=== PATIENT | female | born 2000 | race Caucasian/White ===

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

== ENCOUNTER 2023-05-18 16:35 | Emergency (ER) | payer OTHER, SELFPAY ==
--- NOTE | ~2023-05-18 | XR_ITS ---
EXAMINATION: XR CHEST CLINICAL INFORMATION: Cough, shortness of breath COMPARISON: Chest radiograph 09/19/2015. TECHNIQUE: 2 views of the chest were obtained. FINDINGS: Clear lungs. No pleural effusion or pneumothorax. Cardiomediastinal silhouette is unchanged. XR/XR chest 2V IMPRESSION: No acute cardiopulmonary abnormality.
--- NOTE | 2023-05-18 16:37 | ECG_ITS ---
Test Reason : CHEST PAIN Blood Pressure : / mmHG Vent. Rate : 086 BPM Atrial Rate : 086 BPM P-R Int : 146 ms QRS Dur : 080 ms QT Int : 358 ms P-R-T Axes : 069 062 050 degrees QTc Int : 428 ms Normal sinus rhythm with sinus arrhythmia Normal ECG No previous ECGs available Referred By: Freida Lee Electronically Signed By:JADYN LANDA MD
[2023-05-18 16:53] VITALS: BP 130/83; PULSE 93; RESP 18; TEMP 37.4; O2SAT 98; BMI 27.0
--- NOTE | 2023-05-18 16:54 | ED_ITS ---
HPI - General Adult General Chief complaint: Upper Respiratory Symptoms Stated complaint: Chest pain, congestion, vomiting Time Seen by Provider: 05/18/23 17:57 Source: patient and RN notes reviewed Mode of arrival: ambulatory Limitations: no limitations History of Present Illness HPI narrative: This is a 84-ek[age]-female presenting to the emergency department with complaints of nasal congestion and productive cough x 2 weeks. She states that initially her symptoms started off with a sore throat. She states that over the course of this past week she has had increased cough, shortness of breath, and chest pain which occurs with coughing. She also reports that she has been nauseous and vomited yesterday. She states that she has been using her albuterol inhaler and updraft which has provided her with some relief. She called her primary care physician was unable to see your until July. No sick contacts. No sore throat, ear pain, abdominal pain, dysuria, hematuria, urinary symptoms, diarrhea or constipation. No other complaints or concerns at this time. MD complaint: Cough Onset (ago): day(s) Radiation: non-radiation Quality: aching Pain Consistency: constant Relieving factors: none Exacerbating factors: none Associated symptoms: denies other symptoms Treatments prior to arrival: none Related Data Home Medications Medication Instructions Recorded Confirmed albuterol sulfate 90 mcg/actuation 2 puff inhalation Q4H PRN wheezing 05/11/20 aerosol inhaler clotrimazole 1 % topical cream applic topical 05/11/20 metronidazole 500 mg tablet 500 mg PO BID 05/11/20 nitrofurantoin 1 cap PO BID 05/11/20 monohydrate/macrocrystals 100 mg capsule norgestimate 0.25 mg-ethinyl 1 tab PO DAILY 05/11/20 estradiol 35 mcg tablet ondansetron 4 mg disintegrating 4 mg PO Q8H PRN nausea/vomiting 05/11/20 tablet tamsulosin 0.4 mg capsule 0.4 mg PO DAILY 05/11/20 Previous Rx's Medication Instructions Recorded tamsulosin 0.4 mg capsule 0.4 mg PO BEDTIME #30 caps 05/11/20 albuterol sulfate 2.5 mg/3 mL 2.5 mg (3 mL) inhalation QID PRN 05/18/23 (0.083 %) solution for nebulization shortness of breath or wheezing #90 mL azithromycin 250 mg tablet See Rx Instructions PO .COMPLEX #6 05/18/23 tabs benzonatate 100 mg capsule 100 mg PO TID PRN cough #20 caps 05/18/23 prednisone 20 mg tablet 20 mg PO DAILY 5 days #5 tabs 05/18/23 sodium chloride 0.65 % nasal spray 2 spray intranasal QID PRN nasal 05/18/23 aerosol (Saline Nose) congestion #45 mL Allergies Allergy/AdvReac Type Severity Reaction Status Date / Time No Known Allergies Allergy Verified 05/18/23 16:53 [No Known Allergies*] Review of Systems Review of Systems: Yes all other systems are reviewed and are negative Constitutional: Constitutional: Reports as per [facility] Past Medical History Attestation statement: The following information was validated with the patient. Social History Social History Advance Directives: No Advance Directives Information Provided: No Physical Exam ED Vital Signs: Vital Signs - 24 hr 05/18/23 16:53 Temperature 99.3 F Pulse Rate 93 Respiratory Rate 18 Blood Pressure 130/83 Pulse Oximetry 98 Oxygen Delivery Method Room Air BMI result Body Mass Index 27.0 Const General: cooperative, comfortable and no acute distress Orientation/consciousness: patient oriented x3 Limitations: no limitations HENMT Head: Yes normal to inspection, Yes normocephalic and Yes atraumatic Ears: hearing grossly normal bilaterally and TM's normal bilaterally General nose exam: Normal external nose present Face and sinus: Yes normal facial exam Mouth: Normal oral and palatal mucosa present, oropharynx normal and moist mucous membranes Throat: Yes posterior oropharynx normal Eyes General: appearance normal, both eyes and all related structures Eyelids: Yes eyelids normal Conjunctivae: conjunctivae normal Sclerae: sclerae normal Pupils: Equal, round and reactive pupils present EOM: EOMs intact bilaterally Neck Neck: Yes normal visual inspection, Yes full ROM and Yes no lymphadenopathy Lymphatic: no lymphadenopathy noted Chest Chest palpation & inspection: normal inspection of the chest Resp Effort & Inspection: normal respiratory effort and able to speak in complete sentences Auscultation: clear to auscultation bilaterally, no crackles, no rales, no rhonchi and no wheezes Cardio Rate: regular rate Rhythm: regular rhythm Heart sounds: S1 normal heart sound present and S2 normal heart sound present GI Inspection: Yes normal to inspection Skin General skin exam: no rashes or lesions noted Trauma: no lacerations or abrasions Wounds: no wounds Neuro General: patient oriented x3 and moves all extremities Cranial nerves: Yes Equal, round and reactive pupils present Extrem General: Yes normal to inspection Right upper extremity: normal to inspection Left upper extremity: normal to inspection Right lower extremity: normal to inspection Left lower extremity: normal to inspection Course Course Course Narrative: This is an RME: Additional HPI, ROS, PE not included below will be deferred to primary provider. This is a 29-sxyf-qxo-female presenting to the emergency department with complaints of chest pain, shortness of breath, cough. She states that initially her symptoms started off with a sore throat. She states that over the course of this past week she has had increased cough, shortness of breath, and chest pain which occurs with coughing. She also reports that she has been nauseous and vomited yesterday. No abdominal pain. Lungs are clear to auscultation bilaterally, oropharynx non erythematous. Plan: Viral swabs, chest x-ray further ER evaluation needed Medical Decision Making Medical Decision Making [facility] Narrative: This is a 23-year-old female, with a history of asthma, presenting to the emergency department for evaluation of productive cough, congestion x2 weeks. Patient states that yesterday she was feeling nauseous and vomited. She states decreased p.o. intake due to nausea today. She adamantly denies chance of . Viral swabs were collected, negative for flu, COVID, RSV. Chest x- ray was obtained and was unremarkable. EKG normal sinus rhythm with sinus arrhythmia. Patient reporting no chest pain during examination. No shortness of breath. Lungs are clear to auscultation bilaterally. Abdomen is soft nontender. Vital signs are stable, afebrile, oxygen saturation 98% on RA. Given patient's symptoms have been ongoing for the last 2 weeks, will treat with azithromycin and prednisone. Will also prescribed nasal saline spray for nasal congestion. Advised to return with any new or worsening symptoms. Patient understands and agrees with plan. Stable for discharge. Differential Diagnosis Differential Diagnoses: The differential diagnosis associated with the presentation includes URI, bronchitis, pneumonia, COVID Lab Data [facility] Lab Attestation statement: I reviewed the patient's lab results. Negative Labs: Lab Results 05/18/23 Range/Units 17:10 Influenza Type A (PCR) NEGATIVE (Negative) Influenza Type B (PCR) NEGATIVE (Negative) RSV RNA Qual (PCR) NEGATIVE (Negative) SARS-CoV-2 RNA (RT-PCR) NEGATIVE (Negative) Radiology Impression Discussion of test interpretation with radiology: I have reviewed the radiologist's reading. Radiologist Impression: EXAMINATION: XR CHEST CLINICAL INFORMATION: Cough, shortness of breath COMPARISON: Chest radiograph 09/19/2015. TECHNIQUE: 2 views of the chest were obtained. FINDINGS: Clear lungs. No pleural effusion or pneumothorax. Cardiomediastinal silhouette is unchanged. XR/XR chest 2V IMPRESSION: No acute cardiopulmonary abnormality. Dictated By: Ishaan Lord MD Discharge Plan Discharge Clinical Impression: Upper respiratory infection Patient Disposition: Home, Self-Care Instructions: Upper Respiratory Infection (ED) Additional Instructions: You presented to the emergency department today for a cough. You tested negative for flu, RSV, and COVID. Her chest x-ray did not show pneumonia. Given her symptoms have been ongoing for the last 2 weeks, I am prescribing you an antibiotic. Please take entire course even if your feeling better. I am also giving you medication called prednisone, this will help inflammation. Also giving him medication to help with the cough, his Tessalon. You can take this as needed. Please take nasal spray as needed for nasal congestion. Continue using albuterol inhaler and duo nebulizer as needed. Please follow-up with your primary care physician, call on Saturday to make an appointment. If any new or worsening symptoms occur, please return for re-evaluation. Prescriptions: New azithromycin 250 mg tablet See Rx Instructions .ROUTE .COMPLEX Qty: 6 0RF Rx Instructions: For 250 mg dose pack: take 500 mg today (day 1), then 250 mg for 4 days (days 2-5) prednisone 20 mg tablet 20 mg PO DAILY 5 Days Qty: 5 0RF Saline Nose 0.65 % aerosol,spray 2 spray intranasal QID PRN (Reason: nasal congestion) Qty: 45 0RF benzonatate 100 mg capsule 100 mg PO TID PRN (Reason: cough) Qty: 20 0RF albuterol sulfate 2.5 mg /3 mL (0.083 %) solution for nebulization 2.5 mg inhalation QID PRN (Reason: shortness of breath or wheezing) Qty: 90 0RF No Action norgestimate-ethinyl estradiol 0.25-35 mg-mcg tablet 1 tab PO DAILY nitrofurantoin monohyd/m-cryst 100 mg capsule 1 cap PO BID clotrimazole 1 % cream topical metronidazole 500 mg tablet 500 mg PO BID tamsulosin 0.4 mg capsule 0.4 mg PO DAILY albuterol sulfate 90 mcg/actuation HFA aerosol inhaler 2 puff inhalation Q4H PRN (Reason: wheezing) ondansetron 4 mg tablet,disintegrating 4 mg PO Q8H PRN (Reason: nausea/vomiting) tamsulosin 0.4 mg capsule 0.4 mg PO BEDTIME Qty: 30 0RF
[2023-05-18 17:56] LABS: Influenza A PCR NEGATIVE (Negative); Influenza B PCR NEGATIVE (Negative); Resp Syncy Virus RNA Qual PCR NEGATIVE (Negative); SARS COV2 PCR INHOUSE NEGATIVE (Negative)
== END 2023-05-18 18:51 | disposition home or self-care (01) ==
PROVIDERS: Physician Assistant Medical; Emergency Provider Student in an Organized Health Care Education/Training Program
DX: J06.9 Acute upper respiratory infection, unspecified (principal); R05.9 Cough, unspecified; Z20.822 Contact with and (suspected) exposure to COVID-19; Z20.828 Contact with and (suspected) exposure to other viral communicable diseases; R06.02 Shortness of breath
CPT/HCPCS: 0241U; 71046; 93005; 99283

== ENCOUNTER 2023-10-15 08:41 | Outpatient (AMB) | payer OTHER, SELFPAY ==
[2023-10-15 08:40] VITALS: BP 118/60; PULSE 107; TEMP 36.8; O2SAT 98; BMI 26.1
--- NOTE | 2023-10-15 08:40 | MHC.OFFWIV ---
Intake Vital Signs 10/15/23 08:40 Height 5 ft 1 in Weight 138 lb BMI 26.1 BP 118/60 Blood Pressure Location Lt brachial Position Sitting Pulse 107 H Pulse Source Pulse Oximeter Temp 98.2 F Temp Source Temporal Artery Scan Pulse Oximetry (%) 98 Oxygen Delivery Method Room Air Intake Visit Reasons: [employer] Sore throat, headache Intake Note: pt is here today for sore throat headache started 2 weeks ago Patient Tobacco Use Status: Never used Tobacco Allergies No Known Allergies [No Known Allergies*] Allergy (Verified 10/15/23 08:55) Medication List - Last Reconciled 10/15/23 by FREDRICK Jasso albuterol sulfate 2.5 mg (3 mL) inhalation QID PRN albuterol sulfate 90 mcg/actuation 2 puffs inhalation Q4H PRN Do you need a note to return to daycare/school/sports/work: Yes HPI HPI Comments History of Present Illness Details Patient is a 23-year-old female in today for a sick visit. Patient states that for the past 2 days she has developed symptoms of headache, sore throat, cough. Patient has used nvax-pzf-kznqbuo medicine like NyQuil with mild effect. Has no significant past medical history. Patient denies shortness of breath, chest pain, vomiting, dizziness, numbness. In office strep is negative. Also obtain upper respiratory swab. [facility] Social History Patient Tobacco Use Status: Never used Tobacco Review of Systems Const All systems reviewed & are unremarkable except as noted in HPI and below Reports headache(s) ENT Denies otalgia, Reports headache(s), Denies nasal congestion, Denies neck pain, Denies post nasal drip and Reports sore throat Card Denies chest pain and Denies dyspnea Resp Denies dyspnea Musc Denies neck pain Neuro Reports headache(s) Physical Exam Vital Signs: Last Vital Signs Temp 98.2 F 10/15/23 08:40 Pulse 107 H 10/15/23 08:40 BP 118/60 10/15/23 08:40 Pulse Ox 98 10/15/23 08:40 Oxygen Delivery Method Room Air 10/15/23 08:40 BMI result Body Mass Index 26.1 Const Other: Appearance: Alert.? Oriented X3.? No acute distress.? Head: Normocephalic, atraumatic, Eyes: Pupils equal, round and reactive to light.? ENT: Pharynx erythme. Tonsils +2. No tonsillar exudate. Neck: Normal inspection.? Neck supple.? CVS: Normal heart rate and rhythm.? Pulses normal.? Respiratory: No respiratory distress.? Breath sounds normal.? Neuro: Oriented X 3.? No motor deficit.? No sensory deficit. CN 2-12 intact Results AMB Rapid Strep AMB Rapid Strep Negative Last Edit by Gail Dickerson MA on 10/15/23 08:55 Results Reviewed Results Reviewed: Strep test negative Assessment & Plan Assessment & Plan (1) Upper respiratory infection: Comment: Patient likely has upper respiratory infection. Will give prednisone and cepacol throat drops. Patient has also been instructed to stay hydrated, can continue to use wwtk-vxc-snsmacm medicine. Code(s): J06.9 - Acute upper respiratory infection, unspecified Qualifiers: URI type: unspecified URI Qualified Code(s): J06.9 - Acute upper respiratory infection, unspecified Plan: Take your medications as prescribed. If you were prescribed antibiotics today, it is important that you take your medication to their entirety, do not skip any doses, do not finish them early. Follow-up with your primary care provider this week. Return to the emergency department with new or worsening symptoms. Such as fevers, chills, chest pain, shortness of breath, nausea, vomiting, dizziness, headache, vision changes, lethargy In case of emergency call 911 Plan Follow-up with PCP. Orders: Orders SARS-CoV2/FLU/RSV Today J06.9 - Acute upper respiratory infection, unspecified Medications: New benzocaine-menthol 15-3.6 mg (Cepacol Sore Throat (benzocaine-menthol)) 1 peggy mucous membrane Q2-4H PRN 16 ea 0RF sore throat benzonatate 100 mg PO BID PRN 30 caps 0RF cough Coding Level of Care Code Est Pt Level 3 (46100) Diagnoses Upper respiratory tract infection, unspecified type J06.9 URI type: unspecified URI Time Spent (min) 23
== END 2023-10-15 09:32 | disposition home or self-care (01) ==
PROVIDERS: Visit Provider Nurse Practitioner Primary Care
DX: J06.9 Acute upper respiratory infection, unspecified (principal)
CPT/HCPCS: 99213

== ENCOUNTER 2023-10-15 10:16 | Outpatient (REF) | payer OTHER, SELFPAY ==
[2023-10-15 11:18] LABS: Influenza A PCR NEGATIVE (Negative); Influenza B PCR NEGATIVE (Negative); Resp Syncy Virus RNA Qual PCR NEGATIVE (Negative); SARS COV2 PCR INHOUSE NEGATIVE (Negative)
== END 2023-10-15 10:17 | disposition home or self-care (01) ==
LOC: HO.HMGCLNP 10:16
PROVIDERS: Visit Provider Nurse Practitioner Primary Care
DX: Z11.52 Encounter for screening for COVID-19 (principal); J06.9 Acute upper respiratory infection, unspecified
CPT/HCPCS: 0241U

== ENCOUNTER 2024-07-16 01:22 | Emergency (ER) | payer SELFPAY ==
--- NOTE | 2024-07-16 | ECG_ITS ---
Test Reason : cp Blood Pressure : */* mmHG Vent. Rate : 93 BPM Atrial Rate : 93 BPM P-R Int : 142 ms QRS Dur : 72 ms QT Int : 362 ms P-R-T Axes : 72 63 36 degrees QTcB Int : 450 ms Normal sinus rhythm Normal ECG When compared with ECG of 18-May-2023 16:42, No significant change was found Referred By: Generic ED Physician Electronically Signed By: Silvino Wright
--- NOTE | 2024-07-16 01:30 | MHC.EDTECH ---
Patient brought into triage area,EKG taken per order,signed by provider
[2024-07-16 01:32] VITALS: BP 123/64; PULSE 106; RESP 18; TEMP 36.8; O2SAT 97; BMI 24.2
--- NOTE | 2024-07-16 01:50 | MHC.EDTECH ---
Patient brought into triage area,labs,sars/flu/rsv,and urine obtained and sent to lab.
[2024-07-16 01:57] LABS: Hemoglobin 15.4 g/dl (12.0-16.0); Mean Corpuscular HGB Conc 36.7 g/dl (31.0-35.0); Mean Corpuscular Hemoglobin 33.1 pg (27.0-33.0); Mean Corpuscular Volume 90.3 fL (80.0-98.0); Mean Platelet Volume 9.5 fL (9.4-12.3); Platelet Count 262 X10*3/uL (160-400); Red Blood Count 4.65 X10*6/uL (4.20-5.50); Red Cell Distribution Width 12.5 % (11.0-16.0); White Blood Count 18.6 X10*3/uL (4.8-10.8)
[2024-07-16 01:59] LABS: Appearance Urine Clear; Color Urine Yellow; Glucose Urine UA Negative (Negative); Leukocyte Esterase Urine Trace (Negative); Nitrite Urine Negative (Negative); PH 5.5 (5.0-9.0); Specific Gravity - Urine >= 1.030 (1.005-1.025); UMIC TRIGGER UA YES; Urine Blood Large (3+) (Negative); Urine Ketones Trace mg/dL (Negative); Urine Protein Trace mg/dL (Neg-Trace)
[2024-07-16 02:00] LABS: Urine Pregnancy NEGATIVE (NEGATIVE)
[2024-07-16 02:01] LABS: UPreg QC Valid YES
[2024-07-16 02:04] LABS: Bacteria Urine Trace (None Seen); Hyaline Casts Urine 0-2 /LPF (0-2); RBC Urine >20 /HPF (0-2); Squamous Epithelial Cell Urine 0-2 /HPF (0-2)
[2024-07-16 02:21] LABS: Troponin-I High Sensitivity < 2.7 ng/L (<3.5-17.0)
[2024-07-16 02:24] LABS: Alanine Aminotransferase 21 U/L (0-31); Albumin Level 4.5 g/dL (3.5-5.0); Alkaline Phosphatase 64 U/L (39-117); Anion Gap 13 (12-20); Aspartate Amino Transferase 22 U/L (5-31); Bilirubin Total 0.6 mg/dL (0.0-1.0); Blood Urea Nitrogen 11 mg/dL (9-16); Calcium 9.2 mg/dL (8.4-10.2); Carbon Dioxide 20 mmol/L (22-29); Chloride 114 mmol/L (96-108); Creatinine Clr Calc Pharmacy 108.8; Estimated Glomerular Filt Rate > 60; Glucose Random 113 mg/dL (60-115); Potassium 3.8 mmol/L (3.3-5.1); Sodium 143 mmol/L (135-145); Total Protein 7.6 g/dL (6.5-8.0)
[2024-07-16 02:34] LABS: Influenza A PCR NEGATIVE (Negative); Influenza B PCR NEGATIVE (Negative); Resp Syncy Virus RNA Qual PCR NEGATIVE (Negative); SARS COV2 PCR INHOUSE NEGATIVE (Negative)
[2024-07-16 05:18] VITALS: BP 108/56; PULSE 85; RESP 16; TEMP 36.9; O2SAT 99
--- NOTE | 2024-07-16 06:46 | PC.NURSE ---
Pt given gingerale and crackers. Pt reports keeping them down. Pt reports ABD pain.
--- NOTE | 2024-07-16 07:00 | ED_ITS ---
HPI - Nausea/Vomiting/Diarrhea General Chief complaint: Nausea/Vomiting/Diarrhea Stated complaint: v/d chest pain Time Seen by Provider: 07/16/24 06:31 Source: patient Mode of arrival: ambulatory Limitations: no limitations History of Present Illness ED Provider: Hanane Vigil PA-C HPI Narrative: 24 yo female presents to the ER for evaluation of nausea, vomiting, diarrhea since last evening around 05:00 o'clock. She reports taking Zofran at home with no relief. She reports multiple episodes of vomiting and nonbloody diarrhea along with generalized abdominal discomfort. Most of the discomfort is in her upper abdomen. She denies anyone at home with similar symptoms. No fever or chills. No urinary symptoms. No back pain. Patient was also reporting pain in her right chest when she vomits. No pain at rest. No shortness a breath. MD elicited complaint: nausea, vomiting, diarrhea and abdominal pain Onset (ago): hour(s) Description of vomiting: food contents Description of diarrhea: loose Associated nausea: Yes Associated abdominal pain: Yes Location of pain: diffuse Pain consistency: intermittent Severity: moderate Quality: aching Exacerbating factors: eating Relieving factors: none Associated symptoms: chest pain, headaches, loss of appetite, malaise, nausea/vomiting and weakness Related Data Home Medications ?Medication ?Instructions ?Recorded ?Confirmed albuterol sulfate 90 mcg/actuation 2 puff inhalation Q4H PRN wheezing 05/11/20 10/15/23 aerosol inhaler Previous Rx's ?Medication ?Instructions ?Recorded albuterol sulfate 2.5 mg/3 mL 2.5 mg (3 mL) inhalation QID PRN 05/18/23 (0.083 %) solution for nebulization shortness of breath or wheezing #90 mL benzocaine 15 mg-menthol 3.6 mg 1 peggy mucous membrane Q2-4H PRN 10/15/23 lozenges (Cepacol Sore Throat sore throat #16 ea (benzocaine-menthol)) benzonatate 100 mg capsule 100 mg PO BID PRN cough #30 caps 10/15/23 ondansetron 4 mg disintegrating 4 mg PO Q8H PRN nausea and 07/16/24 tablet vomiting #5 tabs Allergies Allergy/AdvReac Type Severity Reaction Status Date / Time No Known Allergies Allergy Verified 07/16/24 01:36 [No Known Allergies*] Review of Systems 2 Review of Systems: Yes all other systems are reviewed and are negative Gastrointestinal: Gastrointestinal: Reports nausea PMFSH Social History Social History Alcohol intake: never Patient Tobacco Use Status: Never used Tobacco Smoked in Last 30 Days: No Use of substances other than those prescribed or required for medical reasons: No Advance Directives: No Advance Directives Information Provided: Yes Patient : No Physical Exam 2 Vital Signs: Vital Signs: Last Vital Signs Temp 98.4 F 07/16/24 05:18 Pulse 85 07/16/24 05:18 Resp 16 07/16/24 05:18 BP 108/56 L 07/16/24 05:18 Pulse Ox 99 07/16/24 05:18 O2 Del Method Room Air 07/16/24 05:18 BMI result Body Mass Index 24.2 Appearance: Alert. Oriented X3. appears uncomfortable Head: normocephalic, atraumatic. Eyes: Pupils equal, round and reactive to light. ENT: Pharynx normal. No tonsillar swelling or exudate. Neck: Normal inspection. Neck supple. CVS: Normal heart rate and rhythm. Pulses normal. Respiratory: No respiratory distress. Breath sounds normal. Abdomen: Soft with mild epigastric tenderness, no rebound or guarding. normal +BS x4 Skin: Skin warm and dry. Normal skin color. Normal skin turgor. No rashes. Extremities: No lower extremity edema. No joint swelling. Neuro/psych: Oriented X 3. No motor deficit. No sensory deficit. CN II-XII intact. Normal speech and cognition. Medications Administered Discontinued Medications Generic Name Dose Route Start Last Admin Trade Name Freq PRN Reason Stop Dose Admin Sodium Chloride 1,000 mls @ 999 mls/hr 07/16/24 07:00 07/16/24 07:03 Ns IV 07/16/24 08:00 999 mls/hr .Q1H1M JAKOB Administration Ondansetron HCl 4 mg 07/16/24 06:51 07/16/24 07:03 Ondansetron Hcl 4 Mg/2 Ml Vial IVPUSH 07/16/24 06:52 4 mg ONCE ONE Administration Medical Decision Making Medical Decision Making MDM Narrative: 24 yo female presenting for evaluation of N/V/D, abdominal pain and intermittent right sided chest pain since last night. On arrival to the ER patient was mildly tachycardic with heart rate in the low 100s. Other vital signs are stable. Lab workup today is showing leukocytosis of 18,000. She had is also hyperchloremic with a mildly low bicarb, likely due to GI losses. She has normal renal function, normal LFTs. Troponin is negative and EKGs unremarkable. Low suspicion for cardiac etiology of her chest pain. Most likely musculoskeletal. She has clear lung sounds, low suspicion for pneumothorax. No palpable crepitus on exam. Patient tested negative for COVID, flu, RSV. Her signs and symptoms are most likely due to a viral gastroenteritis. She continues to complain of nausea, has not vomited in a few hours. IV was established she was given IV fluids and Zofran. Patient improved after meds and fluids. Tolerating PO. No vomiting. Abd discomfort improved. Most likely viral gastroenteritis. discussed dx and tx as well as return precautions. stable for d/c home Differential Diagnosis Differential Diagnoses: The differential diagnosis associated with the presentation includes viral gastroenteritis, gastritis, bacterial gastroenteritis, low clinical suspicion for appendicitis, cholecystitis Admission/Observation Consideration of admission/observation: Escalation of care including admission/observation considered Lab Data MDM Lab Attestation statement: I reviewed the patient's lab results. Leukocytosis, mild hyperchloremia with low bicarb, no anion gap, normal renal function, normal LFTs 07/16/24 01:50 07/16/24 01:50 Labs: Lab Results 07/16/24 Range/Units 01:50 WBC 18.6 H (4.8-10.8) X10*3/uL RBC 4.65 (4.20-5.50) X10*6/uL Hgb 15.4 (12.0-16.0) g/dl Hct 42.0 (37.0-47.0) % MCV 90.3 (80.0-98.0) fL MCH 33.1 H (27.0-33.0) pg MCHC 36.7 H (31.0-35.0) g/dl RDW 12.5 (11.0-16.0) % Plt Count 262 (160-400) X10*3/uL MPV 9.5 (9.4-12.3) fL Absolute Nucleated RBC 0.000 (0.0-0.012) X10*3/uL Nucleated RBC % (auto) 0.0 (0.0-0.2) /100WBC Sodium 143 (135-145) mmol/L Potassium 3.8 (3.3-5.1) mmol/L Chloride 114 H (96-108) mmol/L Carbon Dioxide 20 L (22-29) mmol/L Anion Gap 13 (12-20) BUN 11 (9-16) mg/dL Creatinine 0.70 (0.5-1.4) mg/dL Estim Creat Clear Calc 108.8 Estimated GFR > 60 Random Glucose 113 (60-115) mg/dL Calcium 9.2 (8.4-10.2) mg/dL Total Bilirubin 0.6 (0.0-1.0) mg/dL AST 22 (5-31) U/L ALT 21 (0-31) U/L Alkaline Phosphatase 64 (39-117) U/L Troponin I High Sens < 2.7 (<3.5-17.0) ng/L Total Protein 7.6 (6.5-8.0) g/dL Albumin 4.5 (3.5-5.0) g/dL Urine Color Yellow Urine Appearance Clear Urine pH 5.5 (5.0-9.0) Ur Specific [place] >= 1.030 H (1.005-1.025) Urine Protein Trace (Neg-Trace) mg/dL Urine Glucose (UA) Negative (Negative) mg/dL Urine Ketones Trace (Negative) mg/dL Urine Blood Large (3+) H (Negative) Urine Nitrite Negative (Negative) Ur Leukocyte Esterase Trace H (Negative) Urine RBC >20 H (0-2) /HPF Urine WBC 11-20 H (0-5) /HPF Ur Squamous Epith Cells 0-2 (0-2) /HPF Urine Bacteria Trace (None Seen) Hyaline Casts 0-2 (0-2) /LPF Urine Test NEGATIVE (NEGATIVE) Influenza Type A (PCR) NEGATIVE (Negative) Influenza Type B (PCR) NEGATIVE (Negative) RSV RNA Qual (PCR) NEGATIVE (Negative) SARS-CoV-2 RNA (RT-PCR) NEGATIVE (Negative) External Record Review External record reviewed: Outpatient record, Prior outpatient labs and Prior outpatient radiology Tests considered The following testing was considered but not selected: Considered CT scan of her abdomen Prescription Management I considered prescription management with: Pain Medication and Other (Antiemetic) Critical Care Time Critical Care Time Critical Care Time: No Discharge Plan Discharge Clinical Impression: Gastroenteritis Patient Disposition: Home, Self-Care Instructions: Gastroenteritis (DC) Additional Instructions: You lab workup today was unremarkable, aside from elevated white blood cell count which can be seen with infections as well as vomiting. Your urine test was negative for infection and . You most likely have a viral GI bug also known as gastroenteritis. Treatment is supportive care, symptoms usually resolve on their own in 48-72 hours. Recommend rest and plenty of oral hydration. Stick to a bland diet like soup and toast while you are not feeling well. Take the prescribed medication as needed for nausea. Recommend over the counter Pepto Bismol or Imodium for upset stomach and diarrhea. Follow up with your doctor as needed. If you develop new or worsening symptoms call 911 or come back to the ER for further evaluation. Prescriptions: New ondansetron 4 mg tablet,disintegrating 4 mg PO Q8H PRN (Reason: nausea and vomiting) Qty: 5 0RF No Action albuterol sulfate 2.5 mg /3 mL (0.083 %) solution for nebulization 2.5 mg inhalation QID PRN (Reason: shortness of breath or wheezing) Qty: 90 0RF Cepacol Sore Throat (dave-men) 15-3.6 mg lozenge 1 peggy mucous membrane Q2-4H PRN (Reason: sore throat) Qty: 16 0RF benzonatate 100 mg capsule 100 mg PO BID PRN (Reason: cough) Qty: 30 0RF albuterol sulfate 90 mcg/actuation HFA aerosol inhaler 2 puff inhalation Q4H PRN (Reason: wheezing) Stand Alone Forms: Work/School Release Print Language: Jordanian
[2024-07-16] MEDS: ondansetron HCL 4 MG/2 ML VIAL IVPUSH (07:03)
[2024-07-16] MEDS: 0.9 % Sodium Chloride 1,000 ML 999 ML IV (07:03)
[2024-07-16 09:09] VITALS: BP 101/56; PULSE 95; RESP 20; TEMP 37; O2SAT 100
== END 2024-07-16 09:10 | disposition home or self-care (01) ==
PROVIDERS: Emergency Provider Student in an Organized Health Care Education/Training Program
DX: K52.9 Noninfective gastroenteritis and colitis, unspecified (principal); R11.2 Nausea with vomiting, unspecified; R10.2 Pelvic and perineal pain; R07.89 Other chest pain; Z03.818 Encounter for observation for suspected exposure to other biological agents ruled out; Z79.899 Other long term (current) drug therapy
CPT/HCPCS: 0241U; 80053; 81001; 81025; 84484; 85027; 93005; 96361; 96374; 99284; 99285; J2405

== ENCOUNTER → 2024-07-16 01:28 | Outpatient (BNV) | payer SELFPAY | PROVIDERS: Emergency Provider Student in an Organized Health Care Education/Training Program; Visit Provider Internal Medicine Cardiovascular Disease | DX: R07.9 Chest pain, unspecified (principal) | CPT/HCPCS: 93010 ==

== ENCOUNTER 2024-08-04 08:33 | Emergency (ER) | payer OTHER, SELFPAY ==
--- NOTE | 2024-08-04 | ECG_ITS ---
Test Reason : CP Blood Pressure : */* mmHG Vent. Rate : 125 BPM Atrial Rate : 125 BPM P-R Int : 150 ms QRS Dur : 76 ms QT Int : 298 ms P-R-T Axes : 76 56 13 degrees QTcB Int : 430 ms Sinus tachycardia Nonspecific T wave abnormality Abnormal ECG When compared with ECG of 16-Jul-2024 01:28, Nonspecific T wave abnormality, worse in Inferior leads Nonspecific T wave abnormality now evident in Anterolateral leads Referred By: Generic ED Physician Electronically Signed By: Silvino Wright
--- NOTE | ~2024-08-04 | XR_ITS ---
EXAMINATION: XR CHEST 1 VIEW HISTORY: cough COMPARISON: Comparison is made with the prior examination dated 05/18/2023. FINDINGS: A single AP view of the chest is submitted. The lungs are expanded and clear. There is no pleural effusion, pneumothorax, or pulmonary vascular congestion. The heart is normal in size. The bones are intact. XR/XR chest 1V IMPRESSION: No acute cardiopulmonary abnormality. Electronically signed by: Joe Correia MD 08/04/2024 09:41 AM [facility] [place]
[2024-08-04 08:38] VITALS: BP 123/72; PULSE 117; RESP 20; TEMP 37.1; O2SAT 97; BMI 27.6
--- OUTSIDE RECORDS SUMMARY | 2024-08-04 09:11 | XMS_ITS | Clinical Summary ---
Author Organization [employer] Address [address] [place] [address] [address] [place] [address] Care Team Providers Care Powerbuilder Name Role Phone Unavailable Primary Care Provider Unavailabl e Allergies Active Allergy Reactions Criticality Noted Date Comments Dog Epithelium 04/05/2014 Dust Mite Extract 04/05/2014 2014 Tree Extract 04/05/2014 Medications EPINEPHrine (Epipen) 0.3 MG/0.3ML injection syringe INJECT 0.3 MG INTO THE MUSCLE NEEDED FOR ANAPHYLAXIS AND CALL 911 3 Active Active Problems No known active problems Social History Tobacco Use Types Packs/Day Years Used Date Smoking Tobacco: Never Smokeless Tobacco: Never Tobacco Cessation:Counseling Given: Not Answered Comments Unknown Sex and Gender Information Value Date Recorded Sex Assigned at Female 04/30/2022 10:34 AM EDT Legal Sex Female 10:34 AM EDT Gender Identity Female 08/15/2022 11:38 AM EST Sexual Orientation Choose not to disclose 2022 2:08 PM EST Plan of Treatment Health Maintenance Due Date Last Done Comments Chlamydia and Gonorrhea Screening 2002 Depression Screening 2002 HIV Screening 2002 SDOH Screening 2002 Pneumococcal Vaccine: Pediatrics (0 to 5 Years) and At-Risk Patients (6 to 49) Years) (1 of 1 - PPSV23) 02/25/2008 04/08/2003, 2002, 2002, Additional history exists Hepatitis A Vaccines (2 of 2 - 2-dose series) 01/25/2014 07/28/2013 Alcohol/Substance Use Screening 2014 Family Planning (PISQ) 2017 Hepatitis C Screening 02/25/2020 Pap Smear 2023 DTaP/Tdap/Td Vaccines (7 - Td or Tdap) 02/25/2023 02/25/2013, 02/28/2006, 07/29/2003, Additional history exists Tobacco Screening 08/21/2023 08/21/2022 COVID-19 Vaccine ( - season) 2024 08/18/2021, 11/18/2020, 10/27/2020 Influenza Vaccine (#1) 2024 , 04/25/2020, 04/08/2019, Additional history exists Zoster Vaccines (1 of 2) 02/25/2052 RSV Patients and Patients Aged 60 years or older (1 - 1-dose 75+ series) 2077 Hepatitis B Vaccines Completed 2002, 2002, 2002 HIB Vaccines Completed 07/29/2003, 07/02, 2002, Additional history exists IPV Vaccines Completed 02/28/2006, 07/02, 2002, Additional history exists HPV Vaccines Completed 08/26/2014, 07/02, 02/25/2013 Meningococcal Vaccine Completed 11/04/2018, 013 RSV under 20 months Aged Out No longe r eligible based on patient's age to complete this topic Rotavirus Vaccines Aged Out No longer eligible based on patient's age to complete this topic Insurance [employer] PARTIAL
--- OUTSIDE RECORDS SUMMARY | 2024-08-04 09:11 | XMS_ITS | Clinical Summary ---
Author Organization [facility] Address [address] [place] [address] Care Team Providers Care Process Safety Engineer Name Role Phone Denice Francis MD Primary Care [facility] ider Allergies Active Allergy Reactions Criticality Noted Date Comments Dog Dander 04/05/2014 House Dust Mite 04/05/20142013 Other 04/05/2014 Tree Extract Medications Medication Sig Dispensed Refills Start Date End Date Status albuterol HFA (PROAIR HFA ; PROVENTIL HFA ; VENTOLIN HFA) 90 mcg/actuation inhaler Inhale 2 Puffs into the lungs every 4 hours as needed for Cough, Wheezing or Shortness of Breath. 05/15/2023 Active loratadine (CLARITIN) 10 mg tablet Take 1 tablet (10 mg total) by mouth 1 (one) time each day. 05/15/2023 Active EPINEPHrine (EpiPen 2-Star) 0.3 mg/0.3 mL injection Inject 0.3 mg into the muscle as needed for Other (anaphylactic reaction). 2-pack. Fill with whichever brand is covered by insurance. 07/12/2022 Active Active Problems Problem Noted Date Diagnosed Date PCOS (polycystic ovarian syndrome) 06/18/2017 Overview (06/11/2024): Menarche 15, OCP tried for one month 03/17 dysmenorrhea, 04/28/18 CBC, DHEA, FSH, LH wnl, thus androgenic state less likely to be coming from other reasons 17 hydroxy pending, but I have low suspicion Now her total testosterone is elevated at 66, HOWEVER her free testosterone is normal, which is a more sensitive test for detection of hyperandrogenic state. Referral to Adolescent market maker placed. 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 Goode 08/14 Skin test + mite, cat, dog, tree, continue flonase , consider immunotherapy Asthma management per Dr. Quinn electric operator (hx of 3 hospitalizations in [place] ages 12 m 6-7-8 yr old per mom) Given QVAR in [place] not in [place] per mom 04/29/14 not better ref to pulm Allergic rhinoconjunctivitis 12/20/2013 Overview (06/11/2024): Dr. Goode 08/14 Skin test + mite, cat, dog, tree, continue flonase , consider immunotherapy, Asthma management per Dr. Quinn Immunizations Name Administration Dates Next Due DTaP (Infanrix) 6wks to less than 7yo ,07/29/2003,2002,07/15,2002 [id number] (Pentacel) 2mo to less than 5yo 07/29/2003,2002,2002,04/27 HPV, Quadrivalent 08/26/2014,07/28/2013,02/26/20 13 Hepatitis A Pediatric (Havri x; Vaqta) 12mo to less than 19yo 07/28/2013 Hepatitis B Pediatric (Enger ix B; Recombivax HB) to less than 20 yo 2002,2002,2002 IPV Inactivated polio (Ipol) 6wks and older 02/28/2006,2002,2002,04/27 Influenza trivalent, 0.5mL, preservative free (Fluarix; FluLaval; Fluzone) ages 6mo and older (Afluria) 3 years and older 04/08/2019,03/31/2018,06/03/2017,07/10 Influenza trivalent, with pr eservative (Fluzone; Afluria) 6mo and older 03/25/2022,04/25/2020,07/15/2013,04/08,2002 MMR, measles mumps and rubel la Live (Priorix; M-M-R II) 12mo and older 02/28/2006,04/08/2003 MMRV, measles mumps rubella and varicella live (Proquad) 4yo to less than 7yo 02/28/2006,04/08/2003 Meningococcal MCV4P 11/04/2018,02/25/2013 PPD Test 04/08/2019,03/10/2018,06/03/2017 Pneumococcal conjugate 13 va lent (Prevnar 13, PCV13) 2mo and older 04/08/2003,2002,2002,04/27 Pneumococcal conjugate 20 va lent (Prevnar 20, PCV 20) 2mo and older 07/12/2022 Tdap Tetanus diptheria acell ular pertussis (Boostrix; Adacel) 7yo and older 02/25/2013 Varicella live (Varivax) 12m o and older 02/25/2013,04/08/2003 Surgical History Surgery Date Site/Laterality Comments OTHER SURGICAL HISTORY PROCEDURE: DENIES PREVIOUS SURGERY Medical History Medical History Date Comments Asthma hosp age 9y/o ICU DX:Asthma; COM MENT: from infancy Seasonal allergies DX:Seasonal a llergies; COMMENT: allergic to everything Dental caries extractions 24m/o DX:Dental harsha es Milk allergy infancy DX:Milk allergy; COMMENT: nutramagen Vision decreased age 12y glasses DX:Vision decre ased Sinusitis in [place] DX:Sinusitis Constipation DX:Constipation Headache DX:Headache Developmental delay DX:Developme ntal delay; COMMENT: learning problem Dyslexia IEP DX:Dyslexia Dysgraphia DX:Dysgraphia Pancreatitis 2006 DX:Pancreatitis Strep pharyngitis 2013 DX:Strep phary ngitis Allergic rhinitis 08/2013 DX:Allergic rh initis; COMMENT: atarax/flonase/considering immunotherapy Allergic conjunctivitis DX:Aller gic conjunctivitis Anxiety DX:Anxiety Trevor-Schlatter's disease o f right knee 2-14xray unfused ant tibial tubercle apophysis DX:Trevor-Schlatter's disease of right knee; COMMENT: [facility] ctr Cyst of ear canal 12/19/2015 DX:Cyst of ear canal; COMMENT: Cyst ear canal seen by ENT 6/15 resolved, no follow-up UTI (urinary tract infection) 04/24/2018 DX :UTI (urinary tract infection); COMMENT: 04/19/18 - ER [place] for dysuria. UA + leuk, blood, negative nitrites. Urine cx with mixed gram pos/neg. S/p cefuroxime, symptoms resovled Renal US negative for hydronephrosis or kidney stones PCOS (polycystic ovarian syndrome) 2018 DX:PCOS (polycystic ovarian syndrome) Family History Medical History Relation Name Comments Allergies Father fathere sister Asthma Father Stroke Maternal Grandfather d 70s Diabetes Maternal Grandmother Hyperlipidemia Maternal Grandmother Depression Mother Migraines Mother Other: Other Mother migraine/depres nick/anxiety/panic attacks/bipolar disorder Other: PCOS Mother Other: urolithiasis Mother Thyroid disease Mother Alcohol/Drug Mother's side 1 mat side Other cancer Mother's side 2 mat g aunt bone /uncle blood Diabetes Paternal Grandfather Other: Other Paternal Grandfather gout Breast cancer Neg Hx Cancer of Small Bowel Neg Hx Colon cancer Neg Hx Kidney cancer Neg Hx Ovarian cancer Neg Hx Pancreatic cancer Neg Hx Uterine cancer Neg Hx Relation Name Status Comments Brother 1 Alive Brother 2 Alive sinus problems Father Alive 1965 jeovanny todd /sinusitis Maternal Grandfather Maternal Grandmother Mother Alive 1970,jonah choudhury /[employer] Mother's side 1 Mother's side 2 Paternal Grandfather Sister Alive Social History Tobacco Use Types Packs/Day Years Used Date Smoking Tobacco: Never Smokeless Tobacco: Never Alcohol Use Standard Drinks/Week Comments No 0 (1 standard drink = 0.6 oz pur e alcohol) Sex and Gender Information Value Date Recorded Sex Assigned at Not on file Gender Identity Not on file Sexual Orientation Not on file Obstetrics History Last Filed Vital Signs Vital Sign Reading Time Taken Comments Blood Pressure 104/62 05/15/2023 9:49 AM EST Pulse 74 05/15/2023 9:49 AM EST Temperature - - Respiratory Rate - - Oxygen Saturation - - Inhaled Oxygen Concentration - - Weight 64.9 kg (143 lb) 06/19/2023 1:08 PM EST Height 154.9 cm (5' 1 ) 06/19/2023 1:08 PM EST Body Mass Index 27.02 06/19/2023 1:08 PM EST Plan of Treatment Upcoming Encounters Date Type Department Care Team (Late st Contact Info) Description 10/06/2024 3:00 PM EDT Office Visit Adult Medicine [facility] [address] [place] [address] Leny Dowling PA [address] [place] [address] Health Maintenance Due Date Last Done Comments Hepatitis A Vaccines (2 of 2 - 2-dose series) 01/25/2014 07/28/2013 Depression Screening 06/09/2022 Social Influencers of Health Screening 06/09/2022 Cervical Cancer Screening: Pap Smear 2023 DTaP,Tdap,and Td Vaccines (7 - Td or Tdap) 02/25/2023 02/25/2013, 02/28/2006, 07/29/2003, Additional history exists Gonorrhea/Chlamydia Screening 01/02/2024 01/01/2023 COVID-19 Vaccine ( season) 2024 08/18/2021, 11/18/2020, 10/27/2020 Influenza Vaccine (#1) 2024 , 04/25/2020, 04/08/2019, Additional history exists Cholesterol Screening (Lipid Panel) 07/12/2027 07/12/2022 Hepatitis B Vaccines Completed 2002, 2002, 2002 HIB Vaccines Completed 07/29/2003, 08/29, 2002, Additional history exists IPV Vaccines Completed 02/28/2006, 07/02, 2002, Additional history exists MMR Vaccines Completed 02/28/2006, 01/31, 04/08/2003, Additional history exists Varicella Vaccines Completed 02/25/2013, 0 02/28/2006, 04/08/2003, Additional history exists HPV Vaccines Completed 08/26/2014, 07/02, 02/25/2013 Meningococcal ACWY Vaccine Completed 11/04/2018, Pneumococcal Vaccine: Pediatrics (0 to 5 Years) and At-Risk Patients (6 to 64 Years) Completed 07/12/2022, 04/08/2003, 2002, Additional history exists HIV Screening Completed 12/31/2022 Hepatitis C Screening Completed 12/31/2022 RSV Immunization Patients Under 20 months Aged Out No longer eligible based on patient's age to complete this topic Procedures Procedure Name Priority Date/Time Associated Diagnosis Comments GONORRHEA/CHLAMYDIA SCRREENING Routine 01/01/2023 HEPATITIS C SCREENING Routine 12/31/2022 HIV SCREENING Routine 12/31/2022 LIPID PANEL Routine 07/12/2022 from Last 3 Months or Most Recently Relevant to Health Maintenance Results * Gonorrhea/Chlamydia Screening (01/01/2023) Gonorrhea/Chla mydia Screening abstracted Historical Provider [facility] * HIV Screening (12/31/2022) Pathologist [facility] HIV Screening abstracted Historical Provider [facility] E * Hepatitis C Screening (12/31/2022) Hepatitis C Screening abstracted Historical Provider [facility] E * (ABNORMAL) Lipid panel (07/12/2022) LDL/HDL Ratio 4 0 - 4 Triglycerides 104 0 - 150 mg/dL Cholesterol 175 0 - 200 mg/dL HDL 48 40 mg/dL LDL Cholesterol 107(A) 0 - 100 mg/dL Blood Venous blood specimen / Unknown Historical Provider LAB BLOOD ORDERAB LES from Last 3 Months or Most Recently Relevant to Health Maintenance Advance Directives Documents on File Type Date Recorded Patient Flake Cutter Operator Expl anation Health Care Decision (hx) 06/13/2023 MAURICIO CONNELL DIRECTIVE Care Teams Process Safety Engineer Relationship Specialty Start Date End Date Denice Francis MD PCP - General Internal Medicine 04/24/22
--- NOTE | 2024-08-04 09:12 | ED_ITS ---
HPI - General Adult General Chief complaint: Upper Respiratory Symptoms Stated complaint: Cough, asthma, chest tightness Time Seen by Provider: 08/04/24 09:09 Source: patient Mode of arrival: ambulatory Limitations: no limitations History of Present Illness ED Provider: Landy Foster PA-C HPI narrative: Patient is a 24 year old assigned female at with a history of asthma presenting to the emergency department today with a cough and congestion. Patient states that over the last week she has had a cough and congestion. Patient states that she has been using her albuterol at home with minimal relief. Patient denies any dizziness, lightheadedness, abdominal pain, nausea, vomiting, fever, chills, blurry vision, double vision, loss of vision, chest pain, difficulty breathing, shortness of breath, back pain, night sweats, pain with urination, increased urinary frequency, increased urinary urgency, blood in her urine or stool, syncope or a near syncopal episode, recent trauma or falls, bowel incontinence, bladder incontinence, or any other complaints at this time. Onset (ago): week(s) (1) Relieving factors: none Exacerbating factors: none Associated symptoms: cough Related Data Home Medications ?Medication ?Instructions ?Recorded ?Confirmed albuterol sulfate 90 mcg/actuation 2 puff inhalation Q4H PRN wheezing 05/11/20 10/15/23 aerosol inhaler Previous Rx's ?Medication ?Instructions ?Recorded albuterol sulfate 2.5 mg/3 mL 2.5 mg (3 mL) inhalation QID PRN 05/18/23 (0.083 %) solution for nebulization shortness of breath or wheezing #90 mL benzocaine 15 mg-menthol 3.6 mg 1 peggy mucous membrane Q2-4H PRN 10/15/23 lozenges (Cepacol Sore Throat sore throat #16 ea (benzocaine-menthol)) benzonatate 100 mg capsule 100 mg PO BID PRN cough #30 caps 10/15/23 ondansetron 4 mg disintegrating 4 mg PO Q8H PRN nausea and 07/16/24 tablet vomiting #5 tabs prednisone 20 mg tablet 20 mg PO DAILY 7 days #7 tabs 08/04/24 Allergies Allergy/AdvReac Type Severity Reaction Status Date / Time No Known Allergies Allergy Verified 08/04/24 08:41 [No Known Allergies*] Review of Systems Constitutional: Constitutional: Reports no additional constitutional complaints, Denies chills, Denies fever(s) and Denies night sweats Eyes: Eyes: Reports no additional eye complaints, Denies blurry vision, Denies change in vision, Denies diplopia, Denies eye discharge, Denies loss of vision and Denies eye pain ENT: Denies dizziness and Reports nasal congestion Cardiovascular: Cardiovascular: Reports no additional cardiovascular complaints, Denies chest pain, Denies lightheadedness, Denies Loss of Consciousness and Denies dyspnea Respiratory: Respiratory: Reports no additional respiratory complaints, Reports cough and Denies dyspnea Gastrointestinal: Gastrointestinal: Reports no additional gastrointestinal complaints, Denies abdominal pain, Denies melena, Denies hematochezia, Denies change in bowel habits and Denies change in stool character Genitourinary: Genitourinary: Denies hematuria, Denies urinary frequency, Denies dysuria, Denies urinary incontinence, Denies urinary hesitancy and Denies urinary urgency Musculoskeletal: Musculoskeletal: Reports no additional musculoskeletal complaints, Denies numbness and Denies tingling Neurologic: Denies dizziness, Denies loss of vision, Denies numbness and Denies tingling Psychiatric: Psychiatric: Reports no additional psychiatric complaints Endocrine: Endocrine: Reports no additional endocrine complaints Hematologic/Lymphatic: Hematologic/Lymphatic: Reports no additional hematologic/lymphatic complaints Allergic/Immunologic: Allergic/Immunologic: Reports no additional allergi c/immunologic complaints PMFSH Past Medical History Attestation statement: The following information was validated with the patient. Source: old records reviewed and nursing notes reviewed Social History Social History Alcohol intake: never Patient Tobacco Use Status: Never used Tobacco Physical Exam ED Vital Signs: Vital Signs - 24 hr 08/04/24 08:38 08/04/24 10:29 08/04/24 10:58 Temperature 98.8 F 98.9 F Pulse Rate 117 H 109 H 109 H Respiratory Rate 20 22 H 22 H Blood Pressure 123/72 00/00 L Pulse Oximetry 97 Oxygen Delivery Method Room Air BMI result Body Mass Index 27.6 Const General: cooperative, no acute distress, alert and awake Nutritional Appearance: well nourished Orientation/consciousness: patient oriented x3 Limitations: no limitations HENMT Head: Yes normal to inspection and Yes atraumatic Ears: hearing grossly normal bilaterally and external ears normal General nose exam: Normal external nose present, no nasal discharge noted and no epistaxis Face and sinus: Yes normal facial exam, No abrasion and No laceration Mouth: Normal oral and palatal mucosa present, no drooling and no muffled voice Eyes General: appearance normal, both eyes and all related structures Periorbital: periorbital findings normal Eyelids: Yes eyelids normal Conjunctivae: conjunctivae normal Pupils: Equal, round and reactive pupils present EOM: EOMs intact bilaterally Neck Neck: Yes normal visual inspection, Yes full ROM and Yes no lymphadenopathy Chest Chest palpation & inspection: normal inspection of the chest Resp Effort & Inspection: normal respiratory effort and able to speak in complete sentences Cardio Rate: tachycardic Rhythm: regular rhythm GI Inspection: Yes normal to inspection Neuro General: patient oriented x3 and moves all extremities Cranial nerves: Yes Equal, round and reactive pupils present Cognition (Neuro): normal cognition Extrem General: Yes normal to inspection, Yes full ROM and Yes capillary refill normal Psych Appearance: grossly normal Mental Status: mental status grossly normal Affect: normal affect Attitude: cooperative Thought process: Normal thought process present Thought content: Normal thought content present Insight: Good insight present (Psych) Medications Administered Discontinued Medications Generic Name Dose Route Start Last Admin Trade Name Freq PRN Reason Stop Dose Admin Albuterol Sulfate 2.5 mg/ 0 mg 08/04/24 10:20 08/04/24 10:27 Albuterol/Ipratropium 3 ml INHALE 08/04/24 10:21 1 dose ONCE ONE Administration Methylprednisolone Sodium Succinate 60 mg 08/04/24 10:05 08/04/24 10:56 Methylprednisolone Sod Succ 125 Mg/2 Ml Vial IM 08/04/24 10:06 60 mg ONCE ONE Administration Medical Decision Making Medical Decision Making [facility] Narrative: Patient is a 24 year old assigned female at with a history of asthma presenting to the emergency department today with a cough and congestion. Patient's physical exam showed tachycardia but was otherwise unremarkable. This is likely secondary to the patient's albuterol treatment prior to arrival. Patient's EKG showed sinus tachycardia. Patient's chest x-ray showed no acute process. Patient's influenza testing was positive. I explained my physical exam findings as well as all test results to the patient. I answered all questions asked by the patient. I stressed the importance of the patient taking her medication as directed (either prescribed or as the over the counter packaging recommends). I stressed the importance of the patient following up with her primary care provider. I stressed the importance of the patient returning to the emergency department immediately if her symptoms were to worsen or if she were to develop any dizziness, shortness of breath, difficulty breathing, chest pain, blurry vision, loss of vision, nausea, vomiting, abdominal pain, fever, chills, back pain, or any other complaints. Patient verbalized agreement and understanding with this treatment plan and discharge. Differential Diagnosis Differential Diagnoses: The differential diagnosis associated with the presentation includes Cough Asthma exacerbation COVID-19 Influenza RSV Admission/Observation Consideration of admission/observation: Escalation of care including admission/observation considered Patient would have been admitted to the hospital had her work up had any findings where hospital admission was appropriate and her clinical presentation warranted hospital admission. Lab Data [facility] Lab Attestation statement: I reviewed the patient's lab results. My interpretation of these results are in the [facility] Rationale portion of this note. Labs: Lab Results 08/04/24 Range/Units 08:50 Influenza Type A (PCR) POSITIVE A (Negative) Influenza Type B (PCR) NEGATIVE (Negative) RSV RNA Qual (PCR) NEGATIVE (Negative) SARS-CoV-2 RNA (RT-PCR) NEGATIVE (Negative) Independent Interpretation I performed an independent interpretation of an: EKG and Plain X-Ray Interpretation: My interpretation is in agreement with the radiologist's impression of this imaging study. EXAMINATION: XR CHEST 1 VIEW HISTORY: cough COMPARISON: Comparison is made with the prior examination dated 05/18/2023. FINDINGS: A single AP view of the chest is submitted. The lungs are expanded and clear. There is no pleural effusion, pneumothorax, or pulmonary vascular congestion. The heart is normal in size. The bones are intact. XR/XR chest 1V IMPRESSION: No acute cardiopulmonary abnormality. Electronically signed by: Joe Correia MD 08/04/2024 09:41 AM [facility] [place] Dictated By: Joe Correia MD Signed By: Electronically signed by Joe Correia MD 08/04/24 0941 I independently interpreted this EKG and am in agreement with the below findings: Vent. Rate: 125 BPM Atrial Rate: 125 BPM P-R Int: 150 ms QRS Dur: 76 ms QT Int: 298 ms P-R-T Axes: 76 56 13 degrees QTcB Int: 430 ms Sinus tachycardia Nonspecific T wave abnormality When compared with ECG of 16-Jul-2024 01:28, Nonspecific T wave abnormality, worse in Inferior leads Nonspecific T wave abnormality now evident in Anterolateral leads DD/ [id number] Radiology Impression Discussion of test interpretation with radiology: I have reviewed the radiologist's reading. Discharge Plan Discharge Clinical Impression: Influenza Patient Disposition: Home, Self-Care Instructions: Influenza (DC) Additional Instructions: Follow up with your primary care provider. Return to the emergency department immediately if your symptoms worsen or if you develop any dizziness, shortness of breath, difficulty breathing, chest pain, blurry vision, loss of vision, nausea, vomiting, abdominal pain, fever, chills, back pain, or any other complaints. Prescriptions: New prednisone 20 mg tablet 20 mg PO DAILY 7 Days Qty: 7 0RF No Action albuterol sulfate 2.5 mg /3 mL (0.083 %) solution for nebulization 2.5 mg inhalation QID PRN (Reason: shortness of breath or wheezing) Qty: 90 0RF ondansetron 4 mg tablet,disintegrating 4 mg PO Q8H PRN (Reason: nausea and vomiting) Qty: 5 0RF Cepacol Sore Throat (dave-men) 15-3.6 mg lozenge 1 peggy mucous membrane Q2-4H PRN (Reason: sore throat) Qty: 16 0RF benzonatate 100 mg capsule 100 mg PO BID PRN (Reason: cough) Qty: 30 0RF albuterol sulfate 90 mcg/actuation HFA aerosol inhaler 2 puff inhalation Q4H PRN (Reason: wheezing) Referrals: [facility] [place] Family Medicine [Provider Group] (Call to establish and follow up with a primary care provider. If you already have a primary care provider, please follow up with them.) [facility] [place] Primary Care, Sudeep [Provider Group] (Call to establish and follow up with a primary care provider. If you already have a primary care provider, please follow up with them.) [facility] [place] Primary Care,Kezia [Provider Group] (Call to establish and follow up with a primary care provider. If you already have a primary care provider, please follow up with them.) [facility] [place] Primary CareRaphael [Provider Group] (Call to establish and follow up with a primary care provider. If you already have a primary care provider, please follow up with them.) Stand Alone Forms: Work/School Release Interventions: ED Discharge Assessment Last Done: 08/04/24 10:58 Discharge Date/Time: 08/04/24 11:03 Print Language: Gibraltarian
[2024-08-04 09:38] LABS: Influenza A PCR POSITIVE (Negative); Influenza B PCR NEGATIVE (Negative); Resp Syncy Virus RNA Qual PCR NEGATIVE (Negative); SARS COV2 PCR INHOUSE NEGATIVE (Negative)
[2024-08-04] MEDS: Albuterol Sulfate 2.5 MG, Albuterol/Iprat 2.5/0.5MG 3 ML 3 ML INHALE (10:27)
[2024-08-04 10:29] VITALS: PULSE 109; RESP 22; O2SAT 99
[2024-08-04] MEDS: methylPREDNISolone Sod Succ 125 MG/2 ML VIAL 60 MG IM (10:56)
[2024-08-04 10:58] VITALS: BP 00/00; PULSE 109; RESP 22; TEMP 37.2
== END 2024-08-04 11:03 | disposition home or self-care (01) ==
PROVIDERS: Emergency Provider Emergency Medicine
DX: J10.1 Influenza due to other identified influenza virus with other respiratory manifestations (principal); R05.9 Cough, unspecified; R07.89 Other chest pain; R00.0 Tachycardia, unspecified; Z03.818 Encounter for observation for suspected exposure to other biological agents ruled out
CPT/HCPCS: 0241U; 71045; 93005; 94640; 96372; 99284; J2919

== ENCOUNTER → 2024-08-04 09:25 | Outpatient (BNV) | payer SELFPAY | PROVIDERS: Emergency Provider Emergency Medicine; Visit Provider Radiology Diagnostic Radiology | DX: R05.9 Cough, unspecified (principal) | CPT/HCPCS: 71045 ==

== ENCOUNTER 2025-05-22 09:40 | Outpatient (AMB) | payer SELFPAY ==
--- OUTSIDE RECORDS SUMMARY | 2025-05-22 09:42 | XMS_ITS | Clinical Summary ---
Author Organization [employer] Address [address] [place] [address] [address] [place] [address] Care Team Providers Care Montessori Paraprofessional Name Role Phone Unavailable Primary Care Provider [...] Health Maintenance Due Date Last Done Comments Depression Screening 2002 SDOH Screening 2002 Disability Screening 2002 Pneumococcal Vaccine: Pediatrics (0 to 5 Years) and At-Risk Patients (6 to 49) Years (1 of 1 - PPSV23, PCV20, or PCV21) 02/25/2008 04/08/2003, 2002, 2002, Additional history exists Hepatitis A Vaccines (2 of 2 - 2-dose series) 01/25/2014 07/28/2013 Alcohol/Substance Use Screening 2014 Family Planning (PISQ) 2017 Meningococcal B Vaccine (1 of 2 - Standard) 2018 Hepatitis C Screening 02/25/2020 Pap Smear 2023 DTaP/Tdap/Td Vaccines (7 - Td or Tdap) 02/25/2023 02/25/2013, 02/28/2006, 07/29/2003, Additional history exists Tobacco Screening 08/21/2023 08/21/2022 Chlamydia and Gonorrhea Screening 01/01/2024 12/31/2022, 12/31/2022, 07/12/2022, Additional history exists COVID-19 Vaccine ( - 2024- season) 2025 08/18/2021, 11/18/2020, 10/27/2020 Influenza Vaccine (#1) 2025 , 04/25/2020, 04/08/2019, Additional history exists Zoster Vaccines (1 of 2) 02/25/2052 RSV Patients and Patients Aged 60 years or older (1 - 1-dose 75+ series) 2077 Hepatitis B Vaccines Completed 2002, 2002, 2002 HIB Vaccines Completed 07/29/2003, 07/02, 2002, Additional history exists IPV Vaccines Completed 02/28/2006, 07/02, 2002, Additional history exists HPV Vaccines Completed 08/26/2014, 07/02, 02/25/2013 Meningococcal Vaccine Completed 11/04/2018, 013 HIV Screening Completed 12/31/2022, 07/12/2022 RSV under 20 months Aged Out No longe r eligible based on patient's age to complete this topic Rotavirus Vaccines Aged Out No longer eligible based on patient's age to complete this topic Insurance [employer] PARTIAL
--- NOTE | 2025-05-22 09:43 | MHC.OFFWIV ---
Intake Vital Signs 05/22/25 10:03 Height 5 ft 1 in Weight 141 lb BMI 26.6 BP 100/70 Blood Pressure Location Rt brachial Position Sitting Respiration 15 Pulse 77 Pulse Source Pulse Oximeter Temp 98.3 F Temp Source Oral Pulse Oximetry (%) 99 Oxygen Delivery Method Room Air Intake Visit Reasons: EP-UTI? Intake Note: Pt is here today c/o burning upon urinating x3days Patient Tobacco Use Status: Never used Tobacco Allergies No Known Allergies (No Known Allergies*) Allergy (Verified 08/04/24 08:41) Medication List - Last Reconciled 05/22/25 by Olvin Brito MD albuterol sulfate 2.5 mg (3 mL) inhalation QID PRN albuterol sulfate 90 mcg/actuation 2 puffs inhalation Q4H PRN fluconazole 150 mg PO Q3D 2 doses nitrofurantoin monohyd/m-cryst 100 mg (Macrobid) 100 mg PO BID 7 days ondansetron 4 mg PO Q8H PRN HPI EP-UTI? HPI Details complaints of dysuria x3 days. some frequency burning sensation in urethra and also labiae urine dip positive for leukocytes PFSH Social History Alcohol intake: never Patient Tobacco Use Status: Never used Tobacco Review of Systems Narrative see HPI Physical Exam Vital Signs: Last Vital Signs Temp 98.3 F 05/22/25 10:03 Pulse 77 05/22/25 10:03 Resp 15 05/22/25 10:03 BP 100/70 05/22/25 10:03 Pulse Ox 99 05/22/25 10:03 Oxygen Delivery Method Room Air 05/22/25 10:03 BMI result Body Mass Index 26.6 Const General: no acute distress and well developed Nutritional Appearance: well nourished Orientation/consciousness: patient oriented x3 HEENT Head: Yes normocephalic and Yes atraumatic Eyes General: appearance normal, both eyes and all related structures Pupils: Equal, round and reactive pupils present EOM: EOMs intact bilaterally Resp Effort & Inspection: normal respiratory effort Neuro General: patient oriented x3 and gait normal Cranial nerves: Yes Equal, round and reactive pupils present Psych Affect: normal affect Results AMB Urinalysis, Automated UA Leukoctes 500 Ciarra/uL Last Edit by Indira Yepez CMA on 05/22/25 10:03 UA Nitrite Negative Last Edit by Indira Yepez, [employer] on 05/22/25 10:03 UA Urobilinogen 0.2 mg/dL Last Edit by Indira Yepez, [employer] on 05/22/25 10:03 UA Protein 0 mg/dL Last Edit by Indira Yepez, [employer] on 05/22/25 10:03 UA pH 7.0 Last Edit by Indira Yepez, [employer] on 05/22/25 10:03 UA Blood 0 Fermin/uL Last Edit by Indira Yepez, [employer] on 05/22/25 10:03 UA Specific [place] 1.015 Last Edit by Indira Yepez, [employer] on 05/22/25 10:03 UA Ketone Negative Last Edit by Indira Yepez, [employer] on 05/22/25 10:03 UA Bilirubin 0 mg/dL Last Edit by Indira Yepez, [employer] on 05/22/25 10:03 UA Glucose 0 mg/dL Last Edit by Indira Yepez, [employer] on 05/22/25 10:03 Results Reviewed Results Reviewed: Laboratory Last Values Urine pH (Auto) 7.0 05/22/25 09:43 Specific [place] (Auto) 1.015 05/22/25 09:43 Urine Protein (Auto) 0 mg/dL 05/22/25 09:43 Glucose (UA)(Auto) 0 mg/dL 05/22/25 09:43 Urine Ketones (Auto) Negative 05/22/25 09:43 Urine Blood (Auto) 0 Fermin/uL 05/22/25 09:43 Urine Nitrite (Auto) Negative 05/22/25 09:43 Urine Bilirubin (Auto) 0 mg/dL 05/22/25 09:43 Urine Urobilinogen (Auto) 0.2 mg/dL 05/22/25 09:43 Leukocyte Esterase (Auto) 500 Ciarra/uL 05/22/25 09:43 Assessment & Plan Assessment & Plan (1) Dysuria: Code(s): R30.0 - Dysuria Plan: dysuria and frequency urine dip positive for white blood cells most likely yeast infection. she had tried a topical medication but she says this caused burning. Will give her a script for Diflucan. sending urine off for cultures and sensitivities. She can start Macrobid if not improved with Diflucan, or if indicated by culture and sensitivity - would call patient hydrate well Orders: Orders UA CC w/rflx Micro + Cult Today R30.0 - Dysuria, Z00.00 - Encounter for general adult medical examination without abnormal findings AMB Urinalysis Automated Today Z13.9 - Encounter for screening, unspecified Urine Culture Today R30.0 - Dysuria Medications: New fluconazole 150 mg PO Q3D 2 tabs 0RF 2 doses nitrofurantoin monohyd/m-cryst 100 mg (Macrobid) must administer with a meal/food 100 mg PO BID 14 caps 0RF 7 days Coding Level of Care Code Est Pt Level 3 (69541) Diagnoses Dysuria R30.0
[2025-05-22 10:03] VITALS: BP 100/70; PULSE 77; RESP 15; TEMP 36.8; O2SAT 99; BMI 26.6
== END 2025-05-22 10:38 | disposition home or self-care (01) ==
LOC: HO.HMCWIC 09:40
PROVIDERS: Visit Provider Family Medicine
DX: Z13.9 Encounter for screening, unspecified (principal); R30.0 Dysuria

== ENCOUNTER 2025-05-22 09:40 | Outpatient (REF) | payer OTHER, SELFPAY ==
[2025-05-22 11:15] LABS: Appearance Urine Clear; Glucose Urine UA Negative (Negative); PH 7.5 (5.0-9.0); Specific Gravity - Urine 1.020 (1.005-1.025); UMIC TRIGGER UA YES
== END 2025-05-22 09:41 | disposition home or self-care (01) ==
LOC: HO.LAB 09:40
PROVIDERS: Visit Provider Family Medicine
DX: Z00.00 Encounter for general adult medical examination without abnormal findings (principal); R30.0 Dysuria; R35.0 Frequency of micturition; Z13.89 Encounter for screening for other disorder
CPT/HCPCS: 81001; 81003; 87086; 87147; 99212